=== PATIENT | male | born 1970 | race Two or more races ===

== ENCOUNTER 2017-10-22 18:41 | Emergency (ER) | payer OTHER ==
[~2017-10-22] VITALS: Ht 167.6 cm; Wt 95.3 kg
[2017-10-22] MEDS ORDERED: ALBUTEROL SULFATE 2.5 MG/3 ML NEBU. NEB ONE (19:30)
[2017-10-22] MEDS ORDERED: IV NORMAL SALINE 500ML BAG 500 ML IV ONE (19:30)
[2017-10-22 19:31] LABS: BASO % 1 % (0-3); EOS # 0.1 x10^3/uL (0.0-0.7); EOS % 1 % (0-3); HEMATOCRIT 40.4 % (39.0-53.0); HEMOGLOBIN 14.2 g/dL (13.0-17.5); LYMPH # 1.7 x10^3/uL (1.0-4.8); LYMPH % 17 % (24-48); MEAN CORPUSCULAR HEMOGLOBIN 31 pg (25-35); MEAN CORPUSCULAR HGB CONC 35 g/dL (31-37); MEAN CORPUSCULAR VOLUME 87 fL (79-100); MONO # 0.9 x10^3/uL (0.0-1.1); MONO % 9 % (0-9); NEUT # 7.1 x10^3uL (1.8-7.7); NEUT % 73 % (31-73); PLATELET COUNT 233 x10^3/uL (140-400); RED BLOOD COUNT 4.63 x10^6/uL (4.30-5.70); RED CELL DISTRIBUTION WIDTH 12.4 % (11.5-14.5); WHITE BLOOD COUNT 9.8 x10^3/uL (4.0-11.0)
[2017-10-22 19:44] LABS: CALCIUM 9.5 mg/dL (8.5-10.1); GFR 80.4
--- NOTE | 2017-10-22 19:48 | RAD ---
EXAM: Chest, 2 views. HISTORY: Chest pain. COMPARISON: None. FINDINGS: 2 views of the chest are obtained. There is no infiltrate, pleural effusion or pneumothorax. The heart is normal in size. IMPRESSION: No acute pulmonary finding. Electronically signed by: Jenna Johnson MD (10/22/2017 7:45 PM) [facility]
[2017-10-22 19:49] LABS: ALBUMIN 3.5 g/dL (3.4-5.0); ALBUMIN/GLOBULIN RATIO 1.1 (1.0-1.7); TOTAL BILIRUBIN 0.5 mg/dL (0.2-1.0); TOTAL PROTEIN 6.7 g/dL (6.4-8.2)
[2017-10-22] MEDS ORDERED: DEXAMETHASONE SOD PHOS 20 MG/5 ML VIAL. IV ONE (21:15)
[2017-10-22] MEDS ORDERED: BENZ100C PO (21:51)
[2017-10-22] MEDS ORDERED: AMOX1TAB61 PO (21:51)
[2017-10-22] MEDS ORDERED: PROAIR HFA8.5 GM INH (21:51)
--- NOTE | 2017-10-22 21:52 | PHYS DOC ---
Past Medical History Past Medical History: Diabetes-Type I, Renal Failure Past Surgical History: Other Additional Past Surgical Histo: KNEE SX, SKIN GRAPH Alcohol Use: Occasionally Drug Use: None Adult General Chief Complaint Chief Complaint: CHEST PAIN HPI HPI Patient is a 46 year old male who presents to the emergency Department today with complaints of having a cold for the last 3 weeks. For the last 3 days he states he has had chest pain that increases with deep breathing. Patient states that his cold symptoms have included a cough with green sputum produced, weakness, chills, nasal congestion, runny nose, nausea, and diaphoresis. Patient states this morning after coughing he vomited 1. He denies any shortness of breath or wheezing while he is at rest. He states he feels short of breath with increased activity. He denies any sinus pressure. Patient states he is a type II diabetic and he has history of chronic renal failure. Patient states that the only medications he takes are Januvia, NovoLog, Lantus, and aspirin. He states he has taken a total of 5 baby aspirin's today, the last aspirins were taken at approximately noon and he took 4 baby aspirins at that time. Currently he rates his pain as 8 out of 10 on the pain scale. Review of Systems Review of Systems Constitutional: Denies fever, reports chills and fatigue [] Eyes: Denies change in visual acuity, redness, or eye pain [] HENT: Denies ear pain or sore throat, reports nasal congestion and runny nose Respiratory: Reports productive cough with green sputum and shortness of breath that increases with activity. Cardiovascular: Reports substernal chest pain and tightness GI: Denies abdominal pain, bloody stools or diarrhea, reports 1 episode of nausea and vomiting this morning. Musculoskeletal: Denies back pain or joint pain [] Integument: Denies rash or skin lesions [] Neurologic: Denies headache, focal weakness or sensory changes [] Current Medications Current Medications Current Medications Medications (Trade) Dose Ordered Sig/Luis Fernando Start Time Stop Time Status Last Admin Dose Admin Albuterol Sulfate (Ventolin Neb Soln) 2.5 mg 1X ONCE 10/22/17 19:30 10/22/17 19:31 DC 10/22/17 20:08 2.5 MG Dexamethasone Sodium Phosphate (Decadron) 10 mg 1X ONCE 10/22/17 21:15 10/22/17 21:16 DC 10/22/17 21:05 10 MG Sodium Chloride 500 ml @ 500 mls/hr 1X ONCE 10/22/17 19:30 10/22/17 20:29 DC 10/22/17 19:30 500 MLS/HR Allergies Allergies Allergies Coded Allergies Type Severity Reaction Last Updated Verified No Known Drug Allergies 10/22/17 No Physical Exam Physical Exam Constitutional: Well developed, well nourished, no acute distress, non-toxic appearance. [] HENT: Normocephalic, atraumatic, bilateral external ears normal, oropharynx moist, large amount of pale yellow post nasal drainage, no sinus tenderness, no oral exudates, nose normal. [] Eyes: PERRLA, conjunctiva normal, no discharge. [] Neck: Normal range of motion, no tenderness, supple, no stridor. [] Cardiovascular:Heart rate regular rhythm, no murmur [] Lungs & Thorax: Bilateral breath sounds clear to auscultation in upper lobes, coarse lung sounds with scattered wheezes bilaterally in posterior guevara [] Abdomen: Bowel sounds normal, soft, no tenderness, no masses, no pulsatile masses. [] Skin: Warm, dry, no erythema, no rash. [] Extremities: No tenderness, no cyanosis, no clubbing, ROM intact, no edema. [] Neurologic: Alert and oriented X 3, normal motor function, normal sensory function, no focal deficits noted. [] Psychologic: Affect normal, judgement normal, mood normal. [] Current Patient Data Vital Signs Vital Signs Date Time Temp Pulse Resp B/P (MAP) Pulse Ox O2 Delivery O2 Flow Rate FiO2 10/22/17 22:02 70 18 122/88 (99) 99 10/22/17 20:11 Room Air 10/22/17 18:57 98.1 98.1 Lab Values Laboratory Tests Test 10/22/17 19:04 White Blood Count 9.8 x10^3/uL (4.0-11.0) Red Blood Count 4.63 x10^6/uL (4.30-5.70) Hemoglobin 14.2 g/dL (13.0-17.5) Hematocrit 40.4 % (39.0-53.0) Mean Corpuscular Volume 87 fL (79-100) Mean Corpuscular Hemoglobin 31 pg (25-35) Mean Corpuscular Hemoglobin Concent 35 g/dL (31-37) Red Cell Distribution Width 12.4 % (11.5-14.5) Platelet Count 233 x10^3/uL (140-400) Neutrophils (%) (Auto) 73 % (31-73) Lymphocytes (%) (Auto) 17 % (24-48) L Monocytes (%) (Auto) 9 % (0-9) Eosinophils (%) (Auto) 1 % (0-3) Basophils (%) (Auto) 1 % (0-3) Neutrophils # (Auto) 7.1 x10^3uL (1.8-7.7) Lymphocytes # (Auto) 1.7 x10^3/uL (1.0-4.8) Monocytes # (Auto) 0.9 x10^3/uL (0.0-1.1) Eosinophils # (Auto) 0.1 x10^3/uL (0.0-0.7) Basophils # (Auto) 0.0 x10^3/uL (0.0-0.2) D-Dimer (Adrienne) 0.33 ug/mlFEU (0.00-0.50) Sodium Level 136 mmol/L (136-145) Potassium Level 4.0 mmol/L (3.5-5.1) Chloride Level 100 mmol/L (98-107) Carbon Dioxide Level 27 mmol/L (21-32) Anion Gap 9 (6-14) Blood Urea Nitrogen 13 mg/dL (8-26) Creatinine 1.0 mg/dL (0.7-1.3) Estimated GFR (Cockcroft-Gault) 80.4 BUN/Creatinine Ratio 13 (6-20) Glucose Level 348 mg/dL (70-99) H Calcium Level 9.5 mg/dL (8.5-10.1) Total Bilirubin 0.5 mg/dL (0.2-1.0) Aspartate Amino Transferase (AST) 9 U/L (15-37) L Alanine Aminotransferase (ALT) 18 U/L (16-63) Alkaline Phosphatase 105 U/L (46-116) Troponin I Quantitative < 0.017 ng/mL (0.000-0.055) Total Protein 6.7 g/dL (6.4-8.2) Albumin 3.5 g/dL (3.4-5.0) Albumin/Globulin Ratio 1.1 (1.0-1.7) Laboratory Tests 10/22/17 19:04 Laboratory Tests 10/22/17 19:04 EKG EKG [] Radiology/Procedures Radiology/Procedures [] Course & Med Decision Making Course & Med Decision Making Pertinent Labs and Imaging studies reviewed. (See chart for details) [] Dragon Disclaimer Dragon Disclaimer This electronic medical record was generated, in whole or in part, using a voice recognition dictation system. Departure Departure Impression: Primary Impression: Bronchitis Additional Impression: Sinusitis Disposition: HOME, SELF-CARE Condition: STABLE Referrals: UNKNOWN PCP NAME (PCP) Patient Instructions: Bronchitis, [id number], Sinusitis, [id number] Additional Instructions: Fill prescription(s) and use as directed. Cool mist humidifier in room at bedtime. Tylenol or ibuprofen prn pain/fever. Increase clear fluids. Avoid triggers such as smoke, fragrance, dust, and pollen. Follow-up with your primary care doctor in 1-2 days, return to the ER if your symptoms worsen. Scripts Albuterol Sulfate (PROAIR HFA INHALER) 8.5 Gm Hfa.aer.ad 1-2 PUFF INH PRN Q6HRS PRN for SHORTNESS OF BREATH for 14 Days, #1 INHALER 0 Refills Prov: VERO LIZARRAGA APRN 10/22/17 Benzonatate (TESSALON PERLE) 100 Mg Capsule 1 CAP PO TID PRN for COUGH for 7 Days, #21 CAP 0 Refills Prov: VERO LIAZRRAGA APRN 10/22/17 Amoxicillin/Potassium Clav (AUGMENTIN 875-125 TABLET) 1 Each Tablet 1 TAB PO BID, #20 TAB 0 Refills Prov: VERO LIZARRAGA APRN 10/22/17 Problem Qualifiers Additional Impression: Sinusitis Sinusitis location: maxillary Chronicity: acute Recurrence: not specified as recurrent Qualified Codes: J01.00 - Acute maxillary sinusitis, unspecified VERO LIZARRAGA APRN Oct 22, 2017 21:51
[2017-10-22 22:02] VITALS: BP 122/88
--- NOTE | 2017-10-23 10:31 | EKG ---
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
== END 2017-10-22 22:03 | disposition home or self-care (01) ==
LOC: ER 18:41
DX: J40 Bronchitis, not specified as acute or chronic (principal); J01.00 Acute maxillary sinusitis, unspecified; E10.22 Type 1 diabetes mellitus with diabetic chronic kidney disease; R11.2 Nausea with vomiting, unspecified
CPT/HCPCS: 36415; 71046; 80053; 84484; 85025; 85379; 93005; 94640; 96361; 96374; 99285; J1100; J7040; J7613

== ENCOUNTER 2019-07-05 07:57 | Emergency (ER) | payer MEDICAID ==
[~2019-07-05] VITALS: Ht 167.6 cm; Wt 104.0 kg
[~2019-07-05 07:57] MED LIST: ALBU2.5V8 INH; AMOX1TAB61 PO; ASPI-612 PO; ATOR20TA58 PO; BENZ100C PO; INSU100V8 SQ; PANT40TA77 PO
[2019-07-05] MEDS ORDERED: IV NORMAL SALINE 1000ML BAG 1,000 ML IV ONE (08:30)
[2019-07-05 08:55] LABS: BARBITURATES NEG (NEG); BASO % 0 % (0-3); BENZODIAZEPINES NEG (NEG); CANNABINOIDS NEG (NEG); COCAINE NEG (NEG); EOS # 0.1 x10^3/uL (0.0-0.7); EOS % 2 % (0-3); HEMATOCRIT 42.7 % (39.0-53.0); HEMOGLOBIN 14.9 g/dL (13.0-17.5); LYMPH # 1.3 x10^3/uL (1.0-4.8); LYMPH % 22 % (24-48); MEAN CORPUSCULAR HEMOGLOBIN 30 pg (25-35); MEAN CORPUSCULAR HGB CONC 35 g/dL (31-37); MEAN CORPUSCULAR VOLUME 87 fL (79-100); METHADONE NEG (NEG); MONO # 0.3 x10^3/uL (0.0-1.1); MONO % 6 % (0-9); NEUT # 4.2 x10^3/uL (1.8-7.7); NEUT % 70 % (31-73); OPIATES NEG (NEG); PHENCYCLIDINE NEG (NEG); PLATELET COUNT 224 x10^3/uL (140-400); RED CELL DISTRIBUTION WIDTH 12.8 % (11.5-14.5)
[2019-07-05 08:57] LABS: CALCIUM 8.5 mg/dL (8.5-10.1); GFR 79.8; POTASSIUM 4.1 mmol/L (3.5-5.1)
[2019-07-05 09:04] LABS: AMPHETAMINE/METHAMPHETAMINE NEG (NEG)
--- NOTE | 2019-07-05 09:04 | RAD ---
PQRS Compliance Statement: One or more of the following individualized dose reduction techniques were utilized for this examination: 1. Automated exposure control 2. Adjustment of the mA and/or kV according to patient size 3. Use of iterative reconstruction technique CT abdomen/pelvis without contrast 07/05/2019 8:42 AM INDICATION: Hematuria, abdominal pain COMPARISON: CT abdomen/pelvis 04/25/2019 TECHNIQUE: Multiple axial CT images of the abdomen and pelvis were obtained without intravenous contrast. Coronal and sagittal reformats are provided. FINDINGS: Visualized portions of the lung bases are clear. Heart size is within normal limits. Evaluation of the solid abdominal viscera is limited by lack of intravenous contrast. No suspicious hepatic masses are identified. Spleen, bilateral adrenal glands, and pancreas are normal in appearance. Gallbladder is present without adjacent inflammatory changes. The abdominal aorta is normal in course and caliber. There are no pathologically enlarged lymph nodes in the abdomen and pelvis. There is no abdominal free fluid. There is no free intraperitoneal air. The kidneys are relatively symmetric in appearance. There is no suspicious renal mass within the limitations of a noncontrast examination. There is no hydronephrosis. There are no calculi within the kidneys, ureters or urinary bladder. Small and large bowel are normal in caliber. There is no evidence for bowel obstruction. There are no pericolonic inflammatory changes. A normal, nondilated appendix is visualized without adjacent inflammatory changes. Urinary bladder is within normal limits given degree of distention. Prostate and seminal vesicles are normal. There is a healed fracture involving the medial left 12th rib at the costotransverse junction. 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 IMPRESSION: No evidence for obstructive uropathy. No calculi are identified in the kidneys, ureters or urinary bladder. Electronically signed by: Beata Guerin MD (07/05/2019 9:01 AM) [facility]
[2019-07-05 09:10] LABS: ALBUMIN 3.6 g/dL (3.4-5.0); ALBUMIN/GLOBULIN RATIO 1.2 (1.0-1.7); MAGNESIUM 1.8 mg/dL (1.8-2.4); TOTAL BILIRUBIN 0.6 mg/dL (0.2-1.0); TOTAL PROTEIN 6.6 g/dL (6.4-8.2)
[2019-07-05 09:18] LABS: CLARITY,URINE BLOODY; COLOR,URINE RED; RBC,URINE TNTC /HPF (0-2)
[2019-07-05 09:19] LABS: BACTERIA,URINE FEW /HPF (0-FEW); WBC,URINE OCC /HPF (0-4)
[2019-07-05 09:45] VITALS: BP 132/74
[2019-07-05] MEDS ORDERED: cefTRIAXone IV Push 1 GM VIAL. IVP ONE (09:45)
[2019-07-05] MEDS ORDERED: LABETALOL 20 MG/4 ML DISP.SYRIN. IVP ONE (10:00)
--- NOTE | 2019-07-05 12:55 | PHYS DOC ---
Past Medical History Past Medical History: Diabetes-Type II, Renal Failure Past Surgical History: Other Additional Past Surgical Histo: knee surgery Smoking Status: Current Every Day Smoker Alcohol Use: Rarely Drug Use: None Adult General Chief Complaint Chief Complaint: MULTIPLE COMPLAINTS HPI HPI Patient is a 48 year old male with history of insulin-dependent diabetes, CAD and medical noncompliance presents with gross hematuria with clots first noticed 1 hour prior to ED arrival. Patient reports minimal left flank pain. Denies abdominal pain, fever chills, sweats, no dysuria. No history of kidney stones. Patient is not currently on anticoagulation therapy. No other acute symptoms or complaints. Of note, patient blood sugars greater than 400. He does not take insulin or any medications and ate donuts prior to coming to the emergency department. [] Review of Systems Review of Systems ROS as per HPI All other systems were reviewed and found to be within normal limits, except as documented in this note. Current Medications Current Medications Current Medications Medications (Trade) Dose Ordered Sig/Luis Fernando Start Time Stop Time Status Last Admin Dose Admin Ceftriaxone Sodium (Rocephin) 1 gm 1X ONCE 07/05/19 09:45 07/05/19 09:46 DC 07/05/19 10:05 1 GM Labetalol HCl (Normodyne Iv Push) 20 mg 1X ONCE 07/05/19 10:00 07/05/19 10:01 UNV Sodium Chloride 1,000 ml @ 1,000 mls/hr 1X ONCE 07/05/19 08:30 07/05/19 09:29 DC 07/05/19 08:32 1,000 MLS/HR Allergies Allergies Allergies Coded Allergies Type Severity Reaction Last Updated Verified No Known Drug Allergies 10/22/17 No Physical Exam Physical Exam Constitutional: Well developed, well nourished, no acute distress, non-toxic appearance. [] HENT: Normocephalic, atraumatic, bilateral external ears normal, oropharynx moist, nose normal. [] Eyes: PERRLA, EOMI, conjunctiva normal. [] Neck: Normal range of motion, no tenderness. [] Cardiovascular:Heart rate regular rhythm, no murmur [] Lungs & Thorax: Bilateral breath sounds clear to auscultation [] Abdomen: Bowel sounds normal, soft, no tenderness. [] Skin: Warm, dry, no erythema. [] Back: No tenderness. [] Extremities: No tenderness,, no edema. [] Neurologic: Alert and oriented X 3, normal motor function, normal sensory function, no focal deficits noted. [] Psychologic: Affect normal, judgement normal, mood normal. [] Current Patient Data Vital Signs Vital Signs Date Time Temp Pulse Resp B/P (MAP) Pulse Ox O2 Delivery O2 Flow Rate FiO2 07/05/19 09:45 75 132/74 (93) 98 Room Air 07/05/19 08:06 98.4 12 98.4 Lab Values Laboratory Tests Test 07/05/19 08:12 07/05/19 08:18 White Blood Count 6.0 x10^3/uL (4.0-11.0) Red Blood Count 4.90 x10^6/uL (4.30-5.70) Hemoglobin 14.9 g/dL (13.0-17.5) Hematocrit 42.7 % (39.0-53.0) Mean Corpuscular Volume 87 fL (79-100) Mean Corpuscular Hemoglobin 30 pg (25-35) Mean Corpuscular Hemoglobin Concent 35 g/dL (31-37) Red Cell Distribution Width 12.8 % (11.5-14.5) Platelet Count 224 x10^3/uL (140-400) Neutrophils (%) (Auto) 70 % (31-73) Lymphocytes (%) (Auto) 22 % (24-48) L Monocytes (%) (Auto) 6 % (0-9) Eosinophils (%) (Auto) 2 % (0-3) Basophils (%) (Auto) 0 % (0-3) Neutrophils # (Auto) 4.2 x10^3/uL (1.8-7.7) Lymphocytes # (Auto) 1.3 x10^3/uL (1.0-4.8) Monocytes # (Auto) 0.3 x10^3/uL (0.0-1.1) Eosinophils # (Auto) 0.1 x10^3/uL (0.0-0.7) Basophils # (Auto) 0.0 x10^3/uL (0.0-0.2) Prothrombin Time 12.0 SEC (11.7-14.0) Prothrombin Time INR 0.9 (0.8-1.1) Activated Partial Thromboplast Time 24 SEC (24-38) Urine Collection Type Unknown Urine Color Red Urine Clarity Bloody Urine pH (<5.0-8.0) Urine Specific [place] (1.000-1.030) Urine Protein mg/dL (NEG-TRACE) Urine Glucose (UA) mg/dL (NEG) Urine Ketones (Stick) mg/dL (NEG) Urine Blood (NEG) Urine Nitrite (NEG) Urine Bilirubin (NEG) Urine Urobilinogen Dipstick mg/dL (0.2 mg/dL) Urine Leukocyte Esterase (NEG) Urine RBC Tntc /HPF (0-2) Urine WBC Occ /HPF (0-4) Urine Bacteria Few /HPF (0-FEW) Sodium Level 133 mmol/L (136-145) L Potassium Level 4.1 mmol/L (3.5-5.1) Chloride Level 99 mmol/L (98-107) Carbon Dioxide Level 25 mmol/L (21-32) Anion Gap 9 (6-14) Blood Urea Nitrogen 19 mg/dL (8-26) Creatinine 1.0 mg/dL (0.7-1.3) Estimated GFR (Cockcroft-Gault) 79.8 BUN/Creatinine Ratio 19 (6-20) Glucose Level 467 mg/dL (70-99) H Lactic Acid Level 0.6 mmol/L (0.4-2.0) Calcium Level 8.5 mg/dL (8.5-10.1) Magnesium Level 1.8 mg/dL (1.8-2.4) Total Bilirubin 0.6 mg/dL (0.2-1.0) Aspartate Amino Transferase (AST) 13 U/L (15-37) L Alanine Aminotransferase (ALT) 28 U/L (16-63) Alkaline Phosphatase 129 U/L (46-116) H Total Protein 6.6 g/dL (6.4-8.2) Albumin 3.6 g/dL (3.4-5.0) Albumin/Globulin Ratio 1.2 (1.0-1.7) Lipase 3654 U/L (73-393) H Urine Opiates Screen Neg (NEG) Urine Methadone Screen Neg (NEG) Urine Barbiturates Neg (NEG) Urine Phencyclidine Screen Neg (NEG) Urine Amphetamine/Methamphetamine Neg (NEG) Urine Benzodiazepines Screen Neg (NEG) Urine Cocaine Screen Neg (NEG) Urine Cannabinoids Screen Neg (NEG) Ethyl Alcohol Level < 10 mg/dL (0-10) Urine Ethyl Alcohol Neg (NEG) Glucose (Fingerstick) 448 mg/dL (70-99) H Laboratory Tests 07/05/19 08:12 Laboratory Tests 07/05/19 08:12 EKG EKG [] Radiology/Procedures Radiology/Procedures [CT abd/pelvis: NAD per radiology report.] Course & Med Decision Making Course & Med Decision Making Pertinent Labs and Imaging studies reviewed. (See chart for details) [Patient with hematuria with out evidence of kidney stone on CT. Patient is able to pass urine in the emergency department. Catheter placement for continuous bladder bladder irrigation offered and declined by patient. He prefers outpatient follow-up with his PCP for urology referral. Return precautions reviewed. Patient verbalizes understanding agreement discharge instructions prior to departure.] Dragon Disclaimer Dragon Disclaimer This electronic medical record was generated, in whole or in part, using a voice recognition dictation system. Departure Departure Impression: Primary Impression: Hematuria Disposition: 01 HOME, SELF-CARE Condition: STABLE Patient Instructions: Hematuria-Brief Additional Instructions: Please increase fluids and follow up with your PCP for a urology referral in the next 2 weeks. In the meantime, if you develop difficulty urinating return to the closest ED with a urologist on staff. CATY PARRA DO July 05, 2019 12:55
--- NOTE | 2019-07-05 14:30 | EKG ---
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
== END 2019-07-05 10:30 | disposition home or self-care (01) ==
LOC: ER 07:57
DX: R31.0 Gross hematuria (principal); E11.22 Type 2 diabetes mellitus with diabetic chronic kidney disease; N18.9 Chronic kidney disease, unspecified; F17.200 Nicotine dependence, unspecified, uncomplicated; I25.10 Atherosclerotic heart disease of native coronary artery without angina pectoris; Z79.4 Long term (current) use of insulin
CPT/HCPCS: 36415; 74176; 80053; 80307; 81001; 82962; 83605; 83690; 83735; 85025; 85610; 85730; 93005; 96374; 99285; G0480; J0696; J7030

== ENCOUNTER 2020-03-02 21:36 | Inpatient (IN) | payer OTHER, MEDICAID ==
[~2020-03-02] VITALS: Ht 167.6 cm; Wt 82.0 kg
[~2020-03-02 21:36] MED LIST changes: -ASPI-612 PO; +ASPI-886 PO
[2020-03-02 22:36] LABS: BASO % 1 % (0-3); EOS # 0.1 x10^3/uL (0.0-0.7); EOS % 2 % (0-3); HEMATOCRIT 42.4 % (39.0-53.0); HEMOGLOBIN 14.8 g/dL (13.0-17.5); LYMPH # 1.6 x10^3/uL (1.0-4.8); LYMPH % 26 % (24-48); MEAN CORPUSCULAR HEMOGLOBIN 31 pg (25-35); MEAN CORPUSCULAR HGB CONC 35 g/dL (31-37); MEAN CORPUSCULAR VOLUME 88 fL (79-100); MONO # 0.5 x10^3/uL (0.0-1.1); MONO % 9 % (0-9); NEUT # 3.9 x10^3/uL (1.8-7.7); NEUT % 62 % (31-73); PLATELET COUNT 194 x10^3/uL (140-400); RED BLOOD COUNT 4.84 x10^6/uL (4.30-5.70); RED CELL DISTRIBUTION WIDTH 12.5 % (11.5-14.5); WHITE BLOOD COUNT 6.2 x10^3/uL (4.0-11.0)
[2020-03-02 22:38] LABS: BILIRUBIN,URINE NEGATIVE (NEG); CLARITY,URINE CLEAR; COLOR,URINE YELLOW; NITRITE,URINE NEGATIVE (NEG); PH,URINE 6.5 (<5.0-8.0); PROTEIN,URINE 30 mg/dL (NEG-TRACE)
[2020-03-02 22:42] LABS: ALBUMIN 3.9 g/dL (3.4-5.0); ALBUMIN/GLOBULIN RATIO 1.3 (1.0-1.7); CALCIUM 9.1 mg/dL (8.5-10.1); CREATININE 1.3 mg/dL (0.7-1.3); GFR 58.7; POTASSIUM 4.1 mmol/L (3.5-5.1); TOTAL BILIRUBIN 0.8 mg/dL (0.2-1.0); TOTAL PROTEIN 6.9 g/dL (6.4-8.2)
[2020-03-02 22:45] LABS: BACTERIA,URINE 0 /HPF (0-FEW); RBC,URINE 0 /HPF (0-2); WBC,URINE 0 /HPF (0-4)
[2020-03-02 22:57] LABS: MAGNESIUM 2.2 mg/dL (1.8-2.4)
[2020-03-02] MEDS ORDERED: INSULIN REGULAR 100 UNIT/ML 3ML VIAL. IV ONE (23:00)
[2020-03-02] MEDS ORDERED: IV NORMAL SALINE 1000ML BAG 1,000 ML IV ONE ×2 (23:00)
[2020-03-02 23:11] LABS: CREATINE KINASE 50 U/L (39-308)
--- NOTE | 2020-03-02 23:11 | RAD ---
INDICATION: Reason: chest pain / Spl. Instructions: / History: COMPARISON: March 2019. FINDINGS: Single view of chest obtained. No focal airspace consolidation. Cardiomediastinal contour unremarkable. No acute osseous abnormality. IMPRESSION: * No focal airspace consolidation or edema. Electronically signed by: Steve Huang MD (03/02/2020 11:08 PM) [id number]
--- NOTE | 2020-03-03 01:04 | ED.ADGEN ---
Past Medical History Past Medical History: Diabetes-Type II, Renal Failure Past Surgical History: Other Additional Past Surgical Histo: knee surgery Smoking Status: Current Every Day Smoker Alcohol Use: None Drug Use: None General Adult EDM: Chief Complaint: CHEST PAIN HPI: HPI: Patient is a 49 year old male with history of diabetes and chronic renal failure who presents to the emergency room with complaints of a sudden onset of chest pain that began 1 hour ago. 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 At the onset of the discomfort he became sweaty and vomited once but denies any blood in his vomit. Patient reports that he has felt fatigued and had a headache recently but he denies any body aches, fever, or loss of taste/smell. Patient reports that he has had a recent cough that occasionally produces green or brown sputum. He states that he has noticed that he has felt short of breath this evening that his chest feels tight. He denies any abdominal pain, diarrhea, or known exposure to COVID-19. Patient reports he does smoke occasionally, he denies any illicit drug use or alcohol use. He states he has a strong family history of heart disease both of his parents had heart problems. He currently rates the discomfort 8 out of 10 on the pain scale, he denies any alleviating or exacerbating factors and describes the discomfort as a heaviness or pressure in his chest. Review of Systems: Review of Systems: Complete ROS is negative unless otherwise noted in HPI. Current Medications: Current Medications Medications (Trade) Dose Ordered Sig/Luis Fernando Start Time Stop Time Status Last Admin Dose Admin Insulin Human Regular (HumuLIN R VIAL) 5 unit 1X ONCE 03/02/20 23:00 03/02/20 23:01 DC 03/02/20 23:25 5 UNIT Sodium Chloride 1,000 ml @ 1,000 mls/hr 1X ONCE 03/02/20 23:00 03/02/20 23:59 DC 03/02/20 23:18 1,000 MLS/HR Allergies: Allergies: Allergies Coded Allergies Type Severity Reaction Last Updated Verified No Known Drug Allergies 10/22/17 No Physical Exam: PE: See Above Constitutional: Well developed, well nourished, no acute distress, non-toxic appearance. [] HENT: Normocephalic, atraumatic, bilateral external ears normal, nose normal. [] Eyes: PERRLA, EOMI, conjunctiva injected, no discharge. [] Neck: Normal range of motion, no stridor. [] Cardiovascular:Heart rate regular rhythm Lungs & Thorax: Respirations even and unlabored, no retractions, no respiratory distress Abdomen: soft, no tenderness Skin: Warm, dry, no erythema, no rash. [] Extremities: No cyanosis, ROM intact, no edema. [] Neurologic: Alert and oriented X 3, no focal deficits noted. [] Psychologic: Affect normal, judgement normal, mood normal. [] Current Patient Data: Labs: Laboratory Tests Test 03/02/20 21:40 03/02/20 22:03 White Blood Count 6.2 x10^3/uL (4.0-11.0) Red Blood Count 4.84 x10^6/uL (4.30-5.70) Hemoglobin 14.8 g/dL (13.0-17.5) Hematocrit 42.4 % (39.0-53.0) Mean Corpuscular Volume 88 fL (79-100) Mean Corpuscular Hemoglobin 31 pg (25-35) Mean Corpuscular Hemoglobin Concent 35 g/dL (31-37) Red Cell Distribution Width 12.5 % (11.5-14.5) Platelet Count 194 x10^3/uL (140-400) Neutrophils (%) (Auto) 62 % (31-73) Lymphocytes (%) (Auto) 26 % (24-48) Monocytes (%) (Auto) 9 % (0-9) Eosinophils (%) (Auto) 2 % (0-3) Basophils (%) (Auto) 1 % (0-3) Neutrophils # (Auto) 3.9 x10^3/uL (1.8-7.7) Lymphocytes # (Auto) 1.6 x10^3/uL (1.0-4.8) Monocytes # (Auto) 0.5 x10^3/uL (0.0-1.1) Eosinophils # (Auto) 0.1 x10^3/uL (0.0-0.7) Basophils # (Auto) 0.0 x10^3/uL (0.0-0.2) D-Dimer (Adrienne) 0.42 ug/mlFEU (0.00-0.50) Sodium Level 131 mmol/L (136-145) L Potassium Level 4.1 mmol/L (3.5-5.1) Chloride Level 95 mmol/L (98-107) L Carbon Dioxide Level 25 mmol/L (21-32) Anion Gap 11 (6-14) Blood Urea Nitrogen 17 mg/dL (8-26) Creatinine 1.3 mg/dL (0.7-1.3) Estimated GFR (Cockcroft-Gault) 58.7 BUN/Creatinine Ratio 13 (6-20) Glucose Level 508 mg/dL (70-99) *H Calcium Level 9.1 mg/dL (8.5-10.1) Magnesium Level 2.2 mg/dL (1.8-2.4) Total Bilirubin 0.8 mg/dL (0.2-1.0) Aspartate Amino Transferase (AST) 12 U/L (15-37) L Alanine Aminotransferase (ALT) 27 U/L (16-63) Alkaline Phosphatase 104 U/L (46-116) Creatine Kinase 50 U/L (39-308) Creatine Kinase MB (Mass) 0.9 ng/mL (0.0-3.6) Creatine Kinase MB Relative Index % (0-4) Troponin I Quantitative < 0.017 ng/mL (0.000-0.055) FF-Xhx-B-Type Natriuretic Peptide 14 pg/mL (0-124) Total Protein 6.9 g/dL (6.4-8.2) Albumin 3.9 g/dL (3.4-5.0) Albumin/Globulin Ratio 1.3 (1.0-1.7) Lipase 1594 U/L (73-393) H Urine Collection Type Unknown Urine Color Yellow Urine Clarity Clear Urine pH 6.5 (<5.0-8.0) Urine Specific [place] >=1.030 (1.000-1.030) Urine Protein 30 mg/dL (NEG-TRACE) Urine Glucose (UA) >=1000 mg/dL (NEG) Urine Ketones (Stick) Negative mg/dL (NEG) Urine Blood Negative (NEG) Urine Nitrite Negative (NEG) Urine Bilirubin Negative (NEG) Urine Urobilinogen Dipstick 1.0 mg/dL (0.2 mg/dL) Urine Leukocyte Esterase Negative (NEG) Urine RBC 0 /HPF (0-2) Urine WBC 0 /HPF (0-4) Urine Bacteria 0 /HPF (0-FEW) Laboratory Tests 03/02/20 21:40 Laboratory Tests 03/02/20 21:40 Vital Signs: Vital Signs Date Time Temp Pulse Resp B/P (MAP) Pulse Ox O2 Delivery O2 Flow Rate FiO2 03/02/20 21:38 98.0 105 24 132/74 (93) 97 Room Air 98.0 EKG: EK-sinus tachycardia, rate 111, leftward axis, no STEMI, read by Dr. Hodges Heart Score: HEART Score for Chest Pain: HEART Score for Chest Pain Response (Comments) Value History Moderately Suspicious 1 ECG Nonspecific Repolarizatio 1 Age >45 - < 65 1 Risk Factors >3 Risk Factors or Hx CAD 2 Troponin < Normal Limit 0 Total 5 Risk Factors: Risk Factors: DM, Current or recent (<one month) smoker, HTN, HLP, family history of CAD, obesity. Risk Scores: Score 0 - 3: 2.5% MACE over next 6 weeks - Discharge Home Score 4 - 6: 20.3% MACE over next 6 weeks - Admit for Clinical Observation Score 7 - 10: 72.7% MACE over next 6 weeks - Early Invasive Strategies Radiology/Procedures: Radiology/Procedures: PROCEDURE: CHEST AP ONLY INDICATION: Reason: chest pain / Spl. Instructions: / History: COMPARISON: March 2019. FINDINGS: Single view of chest obtained. No focal airspace consolidation. Cardiomediastinal contour unremarkable. No acute osseous abnormality. IMPRESSION: * No focal airspace consolidation or edema. Electronically signed by: Steve Huang MD (03/02/2020 11:08 PM) DESKTOP- [id number][] Course & Med Decision Making: Course & Med Decision Making Pertinent Labs and Imaging studies reviewed. (See chart for details) [id number] will admit the patient to the hospitalist for chest pain and hyperglycemia. Serial troponins and EKGs ordered, chest pain admission order set initiated. [] Leola Disclaimer: Leola Disclaimer: This electronic medical record was generated, in whole or in part, using a voice recognition dictation system. Departure Departure Impression: Primary Impression: Chest pain Additional Impressions: Hyperglycemia Person under investigation for COVID-19 Disposition: ADMITTED INPT THIS HOSP Admitting Physician: GADIEL Paris) Condition: STABLE Referrals: UNKNOWN PCP NAME (PCP) Problem Qualifiers Primary Impression: Chest pain Chest pain type: unspecified Qualified Codes: R07.9 - Chest pain, unspeci VERO Cha CERTIFIED ART THERAPIST Mar 03, 2020 01:04
[2020-03-03 06:35] LABS: CHOLESTEROL/HDL RATIO 7.7
--- NOTE | 2020-03-03 07:38 | PDOC1 ---
History and Physical Date of Admission Date of Admission DATE: 03/03/20 TIME: 07:36 Identification/Chief Complaint Chief Complaint Chest pain Source Source: Patient History of Present Illness History of Present Illness Mr George is a 49 year old male with history of diabetes and chronic renal failure, smoker who presents to the emergency room with complaints of a sudden onset of chest pain that began 1 hour prior to presentatino. 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 At the onset of the discomfort he became diaphoretic and vomited once but denies any blood in his vomit. Patient reports that he has felt fatigued and had a headache recently but he denies any body aches, fever, or loss of taste/smell. Patient reports that he has had a recent cough that occasionally produces green or brown sputum. He states that he has noticed that he has felt short of breath this evening that his chest feels tight. He denies any abdominal pain, diarrhea, or known exposure to COVID-19. Patient reports he does smoke occasionally, he denies any illicit drug use or alcohol use. He states he has a strong family history of heart disease both of his parents had heart problems. He currently rates the discomfort 8 out of 10 on the pain scale, he denies any alleviating or exacerbating factors and describes the discomfort as a heaviness or pressure in his chest. On further review he notes his urine has been intermittently looking red recently, no pain on urination. EKG sinus tachycardia rate of [address] segment or T wave changes leftward axis. Chest radiograph with no acute abnormalities Labs with WBC 6.2, Hb 14.8, platelets 194, D-dimer and troponin negative, NA 131, K4.1, BUN 17, CR 1.3, glucose 508, lipase 1594 Admitted for further care. Past Medical History Pulmonary: No pertinent hx GI: No pertinent hx Heme/Onc: No pertinent hx Hepatobiliary: No pertinent hx Psych: No pertinent hx Musculoskeletal: Osteoarthritis Rheumatologic: No pertinent hx Infectious disease: No pertinent hx Renal/: Chronic renal insuff Endocrine: Diabetes Past Surgical History Past Surgical History: Arthroscopy, Other Family History Family History: High Cholestrol, Hypertension Social History Smoke: 1 pack per day ALCOHOL: none Drugs: None Current Problem List Problem List Problems Medical Problems: (1) Chest pain Status: Acute (2) Hyperglycemia Status: Acute (3) Person under investigation for COVID-19 Status: Acute Current Medications Current Medications Current Medications Insulin Human Regular (HumuLIN R VIAL) 5 unit 1X ONCE IV Last administered on 03/02/20at 23:25; Start 03/02/20 at 23:00; Stop 03/02/20 at 23:01; Status DC Sodium Chloride 1,000 ml @ 1,000 mls/hr 1X ONCE IV Last administered on 03/02/20at 23:18; Start 03/02/20 at 23:00; Stop 03/02/20 at 23:59; Status DC Sodium Chloride 1,000 ml @ 1,000 mls/hr 1X ONCE IV Last administered on 03/02/20at 23:18; Start 03/02/20 at 23:00; Stop 03/02/20 at 23:59; Status DC Active Scripts Active Lantus (Insulin Glargine,Hum.rec.anlog) 100 Unit/1 Ml Vial 20 Unit SQ QHS 30 Days Pantoprazole Sodium (Pantoprazole Sodium) 40 Mg Tablet. 40 Mg PO DAILYAC 30 Days Aspirin Ec (Aspirin) 81 Mg Tablet. 81 Mg PO DAILYWBKFT 30 Days Atorvastatin Calcium 20 Mg Tablet 20 Mg PO QHS 30 Days Proair Hfa Inhaler (Albuterol Sulfate) 8.5 Gm Hfa.aer.ad 1-2 Puff INH PRN Q6HRS PRN 14 Days Tessalon Perle (Benzonatate) 100 Mg Capsule 1 Cap PO TID PRN 7 Days Allergies Allergies: Coded Allergies: No Known Drug Allergies (Unverified , 10/22/17) ROS General: YES: Fatigue, Malaise; No: Chills, Night Sweats, Appetite, Other PSYCHOLOGICAL ROS: No: Anxiety, Behavioral Disorder, Concentration difficultie, Decreased libido, Depression, Disorientation, Hallucinations, Hostility, Irritablity, Memory difficulties, Mood Swings, Obsessive thoughts, Physical abuse, Sexual abuse, Sleep disturbances, Suicidal ideation, Other Eyes: No Blurry vision, No Decreased vision, No Double vision, No Dry eyes, No Excessive tearing, No Eye Pain, No Itchy Eyes, No Loss of vision, No Photophobia, No Scotomata, No Uses contacts, No Uses glasses, No Other HEENT: No: Heacaches, Visual Changes, Hearing change, Nasal congestion, Nasal discharge, Oral lesions, Sinus pain, Sore Throat, Epistaxis, Sneezing, Snoring, Tinnitus, Vertigo, Vocal changes, Other ALLERGY AND IMMUNOLOGY: No: Hives, Insect Bite Sensitivity, Itchy/Watery Eyes, Nasal Congestion, Post Nasal Drip, Seasonal Allergies, Other Hematological and Lymphatic: No: Bleeding Problems, Blood Clots, Blood Transfusions, Brusing, Night Sweats, Pallor, Swollen Lymph Nodes, Other ENDOCRINE: No: Breast Changes, Galactorrhea, Hair Pattern Changes, Hot Flashes, Malaise/lethargy, Mood Swings, Palpitations, Polydipsia/polyuria, Skin Changes, Temperature Intolerance, Unexpected Weight Changes, Other Breast: No New/Changing Breast Lumps, No Nipple changes, No Nipple discharge, No Other Respiratory: No: Cough, Hemoptysis, Orthopnea, Pleuritic Pain, Shortness of breath, SOB with excertion, Sputum Changes, Stridor, Tachypnea, Wheezing, Other Cardiovascular: yes Chest Pain; No Palpitations, No Orthopnea, No Paroxysmal Noc. Dyspnea, No Edema, No Lt Headedness, No Other Gastrointestinal: Yes Nausea, Yes Vomiting, Yes Abdominal Pain; No Diarrhea, No Constipation, No Melena, No Hematochezia, No Other Genitourinary: No Dysuria, No Frequency, No Incontinence, No Hematuria, No Retention, No Discharge, No Urgency, No Pain, No Flank Pain, No Other, No , No , No , No , No , No , No Musculoskeletal: No Gait Disturbance, No Joint Pain, No Joint Stiffness, No Joint Swelling, No Muscle Pain, No Muscular Weakness, No Pain In:, No Swelling In:, No Other Neurological: No Behavorial Changes, No Bowel/Bladder ControlChng, No Confusion, No Dizziness, No Gait Disturbance, No Headaches, No Impaired Coord/balance, No Memory Loss, No Numbness/Tingling, No Seizures, No Speech Problems, No Tremors, No Visual Changes, No Weakness, No Other Skin: No Dry Skin, No Eczema, No Hair Changes, No Lumps, No Mole Changes, No Mottling, No Nail Changes, No Pruritus, No Rash, No Skin Lesion Changes, No Other, No Acne Physical Exam General: Alert, Oriented X3, Cooperative, moderate distress HEENT: Atraumatic, PERRLA, EOMI, Mucous membr. moist/pink Lungs: Clear to auscultation, Normal air movement Heart: S1S2, RRR, no thrills, no rubs, no gallops, no murmurs Abdomen: Normal bowel sounds, Soft, No hepatosplenomegaly, No masses, Other (epigastric and LUQ tenderness) Rectal Exam: not examined Extremities: No clubbing, No cyanosis, No edema, Normal pulses, No tenderness/swelling Skin: No rashes, No breakdown, No significant lesion Neuro: Normal gait, Normal speech, Strength at 5/5 X4 ext, Normal tone, Sensation intact, Cranial nerves 3-12 NL, Reflexes 2+ Psych/Mental Status: Mental status NL, Mood NL Vitals Vitals Vital Signs Date Time Temp Pulse Resp B/P (MAP) Pulse Ox O2 Delivery O2 Flow Rate FiO2 03/03/20 06:33 94 102/65 (77) 98 Room Air 03/03/20 01:30 98.0 17 98.0 Labs Labs Laboratory Tests Test 03/02/20 21:40 03/02/20 22:03 03/03/20 01:02 03/03/20 06:10 White Blood Count 6.2 x10^3/uL (4.0-11.0) Red Blood Count 4.84 x10^6/uL (4.30-5.70) Hemoglobin 14.8 g/dL (13.0-17.5) Hematocrit 42.4 % (39.0-53.0) Mean Corpuscular Volume 88 fL (79-100) Mean Corpuscular Hemoglobin 31 pg (25-35) Mean Corpuscular Hemoglobin Concent 35 g/dL (31-37) Red Cell Distribution Width 12.5 % (11.5-14.5) Platelet Count 194 x10^3/uL (140-400) Neutrophils (%) (Auto) 62 % (31-73) Lymphocytes (%) (Auto) 26 % (24-48) Monocytes (%) (Auto) 9 % (0-9) Eosinophils (%) (Auto) 2 % (0-3) Basophils (%) (Auto) 1 % (0-3) Neutrophils # (Auto) 3.9 x10^3/uL (1.8-7.7) Lymphocytes # (Auto) 1.6 x10^3/uL (1.0-4.8) Monocytes # (Auto) 0.5 x10^3/uL (0.0-1.1) Eosinophils # (Auto) 0.1 x10^3/uL (0.0-0.7) Basophils # (Auto) 0.0 x10^3/uL (0.0-0.2) D-Dimer (Adrienne) 0.42 ug/mlFEU (0.00-0.50) Sodium Level 131 mmol/L (136-145) Potassium Level 4.1 mmol/L (3.5-5.1) Chloride Level 95 mmol/L (98-107) Carbon Dioxide Level 25 mmol/L (21-32) Anion Gap 11 (6-14) Blood Urea Nitrogen 17 mg/dL (8-26) Creatinine 1.3 mg/dL (0.7-1.3) Estimated GFR (Cockcroft-Gault) 58.7 BUN/Creatinine Ratio 13 (6-20) Glucose Level 508 mg/dL (70-99) Calcium Level 9.1 mg/dL (8.5-10.1) Magnesium Level 2.2 mg/dL (1.8-2.4) Total Bilirubin 0.8 mg/dL (0.2-1.0) Aspartate Amino Transf (AST/SGOT) 12 U/L (15-37) Alanine Aminotransferase (ALT/SGPT) 27 U/L (16-63) Alkaline Phosphatase 104 U/L (46-116) Creatine Kinase 50 U/L (39-308) Creatine Kinase MB (Mass) 0.9 ng/mL (0.0-3.6) Creatine Kinase MB Relative Index % (0-4) Troponin I Quantitative < 0.017 ng/mL (0.000-0.055) < 0.017 ng/mL (0.000-0.055) < 0.017 ng/mL (0.000-0.055) AY-Nbj-P-Type Natriuretic Peptide 14 pg/mL (0-124) Total Protein 6.9 g/dL (6.4-8.2) Albumin 3.9 g/dL (3.4-5.0) Albumin/Globulin Ratio 1.3 (1.0-1.7) Lipase 1594 U/L (73-393) Urine Collection Type Unknown Urine Color Yellow Urine Clarity Clear Urine pH 6.5 (<5.0-8.0) Urine Specific [place] >=1.030 (1.000-1.030) Urine Protein 30 mg/dL (NEG-TRACE) Urine Glucose (UA) >=1000 mg/dL (NEG) Urine Ketones (Stick) Negative mg/dL (NEG) Urine Blood Negative (NEG) Urine Nitrite Negative (NEG) Urine Bilirubin Negative (NEG) Urine Urobilinogen Dipstick 1.0 mg/dL (0.2 mg/dL) Urine Leukocyte Esterase Negative (NEG) Urine RBC 0 /HPF (0-2) Urine WBC 0 /HPF (0-4) Urine Bacteria 0 /HPF (0-FEW) Triglycerides Level 289 mg/dL (0-150) Cholesterol Level 192 mg/dL (0-200) LDL Cholesterol, Calculated 109 mg/dL (0-100) VLDL Cholesterol, Calculated 58 mg/dL (0-40) Non-HDL Cholesterol Calculated 167 mg/dL (0-129) HDL Cholesterol 25 mg/dL (40-60) Cholesterol/HDL Ratio 7.7 Laboratory Tests Test 03/02/20 21:40 03/02/20 22:03 03/03/20 01:02 03/03/20 06:10 White Blood Count 6.2 x10^3/uL (4.0-11.0) Red Blood Count 4.84 x10^6/uL (4.30-5.70) Hemoglobin 14.8 g/dL (13.0-17.5) Hematocrit 42.4 % (39.0-53.0) Mean Corpuscular Volume 88 fL (79-100) Mean Corpuscular Hemoglobin 31 pg (25-35) Mean Corpuscular Hemoglobin Concent 35 g/dL (31-37) Red Cell Distribution Width 12.5 % (11.5-14.5) Platelet Count 194 x10^3/uL (140-400) Neutrophils (%) (Auto) 62 % (31-73) Lymphocytes (%) (Auto) 26 % (24-48) Monocytes (%) (Auto) 9 % (0-9) Eosinophils (%) (Auto) 2 % (0-3) Basophils (%) (Auto) 1 % (0-3) Neutrophils # (Auto) 3.9 x10^3/uL (1.8-7.7) Lymphocytes # (Auto) 1.6 x10^3/uL (1.0-4.8) Monocytes # (Auto) 0.5 x10^3/uL (0.0-1.1) Eosinophils # (Auto) 0.1 x10^3/uL (0.0-0.7) Basophils # (Auto) 0.0 x10^3/uL (0.0-0.2) D-Dimer (Adrienne) 0.42 ug/mlFEU (0.00-0.50) Sodium Level 131 mmol/L (136-145) Potassium Level 4.1 mmol/L (3.5-5.1) Chloride Level 95 mmol/L (98-107) Carbon Dioxide Level 25 mmol/L (21-32) Anion Gap 11 (6-14) Blood Urea Nitrogen 17 mg/dL (8-26) Creatinine 1.3 mg/dL (0.7-1.3) Estimated GFR (Cockcroft-Gault) 58.7 BUN/Creatinine Ratio 13 (6-20) Glucose Level 508 mg/dL (70-99) Calcium Level 9.1 mg/dL (8.5-10.1) Magnesium Level 2.2 mg/dL (1.8-2.4) Total Bilirubin 0.8 mg/dL (0.2-1.0) Aspartate Amino Transf (AST/SGOT) 12 U/L (15-37) Alanine Aminotransferase (ALT/SGPT) 27 U/L (16-63) Alkaline Phosphatase 104 U/L (46-116) Creatine Kinase 50 U/L (39-308) Creatine Kinase MB (Mass) 0.9 ng/mL (0.0-3.6) Creatine Kinase MB Relative Index % (0-4) Troponin I Quantitative < 0.017 ng/mL (0.000-0.055) < 0.017 ng/mL (0.000-0.055) < 0.017 ng/mL (0.000-0.055) OB-Mqa-I-Type Natriuretic Peptide 14 pg/mL (0-124) Total Protein 6.9 g/dL (6.4-8.2) Albumin 3.9 g/dL (3.4-5.0) Albumin/Globulin Ratio 1.3 (1.0-1.7) Lipase 1594 U/L (73-393) Urine Collection Type Unknown Urine Color Yellow Urine Clarity Clear Urine pH 6.5 (<5.0-8.0) Urine Specific [place] >=1.030 (1.000-1.030) Urine Protein 30 mg/dL (NEG-TRACE) Urine Glucose (UA) >=1000 mg/dL (NEG) Urine Ketones (Stick) Negative mg/dL (NEG) Urine Blood Negative (NEG) Urine Nitrite Negative (NEG) Urine Bilirubin Negative (NEG) Urine Urobilinogen Dipstick 1.0 mg/dL (0.2 mg/dL) Urine Leukocyte Esterase Negative (NEG) Urine RBC 0 /HPF (0-2) Urine WBC 0 /HPF (0-4) Urine Bacteria 0 /HPF (0-FEW) Triglycerides Level 289 mg/dL (0-150) Cholesterol Level 192 mg/dL (0-200) LDL Cholesterol, Calculated 109 mg/dL (0-100) VLDL Cholesterol, Calculated 58 mg/dL (0-40) Non-HDL Cholesterol Calculated 167 mg/dL (0-129) HDL Cholesterol 25 mg/dL (40-60) Cholesterol/HDL Ratio 7.7 Images Images Chest radiograph: Single view of chest obtained. No focal airspace consolidation. Cardiomediastinal contour unremarkable. No acute osseous abnormality. IMPRESSION: * No focal airspace consolidation or edema. VTE Prophylaxis Ordered VTE Prophylaxis Devices: No VTE Pharmacological Prophylaxi: Yes Assessment/Plan Assessment/Plan A/P: Acute pancreatitis - likely related to uncontrolled diabetes. No alcohol use. Will obtain US if COVID 19 negative. Also, if COVID is positive this has been a related disease to COVID19 Chest pain - likely related to pancreatitis, will trend troponins, cardiology was consulted in ED Diabetes with hyperglycemia - IV insulin while NPO, sliding scale, home lantus. IVF Acute on Chronic renal failure - likely vasomotor nephropathy from above, will trend renal function Smoker - counseled on cessation. FEN - NPO PPX - lovenox FULL CODE Dispo - inpatient for above COVID-19 CRITERIA: The patient was evaluated during the global COVID-19 pandemic, and that diagnosis was suspected/considered upon their initial presentation. Their evaluation, treatment and testing was consistent with current guidelines for patients who present with complaints or symptoms that may be related to COVID-19. Justifications for Admission Other Justification RIFFEL,CHRISTOPHER S MD Mar 03, 2020 07:38
[2020-03-03] MEDS ORDERED: MORPHINE SULFATE 2 MG/ML VIAL. IV PRN (07:45)
[2020-03-03] MEDS ORDERED: DEXTROSE 50% 25 GM / 50ML DISP.SYRIN. IV PRN (07:45)
[2020-03-03] MEDS ORDERED: ACETAMINOPHEN 650 MG SUPP.RECT. PR PRN (07:45)
[2020-03-03] MEDS ORDERED: ONDANSETRON PF 4 MG/2 ML VIAL. IV PRN (07:45)
[2020-03-03] MEDS: INSULIN LISPRO 300 UNITS/3 ML VIAL. SQ SCH ×4 (07:45→23:47)
[2020-03-03] MEDS ORDERED: INSULIN REGULAR 100 UNIT/ML 3ML VIAL. IV ONE (08:45)
[2020-03-03] MEDS: IV NORMAL SALINE 1000ML BAG 1,000 ML IV SCH ×2 (09:08→18:36)
[2020-03-03] MEDS: ENOXAPARIN 40 MG/0.4 ML SYRINGE. SQ SCH (09:09)
--- NOTE | 2020-03-03 10:10 | EKG ---
[facility] [address] [place] [address] Test Date: 2020-03-02 Test Time: 21:50:45 Pat Name: PAVEL WEBSTER Department: Room: ED HOLD 15 Gender: M Director Quality Assurance: : 1970 Requested By: SOL WOODS Order Number: [id number] Reading MD: Jose Olsen Measurements Intervals [place] Rate: 111 P: 84 CA: 134 QRS: -22 QRSD: 86 T: 48 QT: 318 QTc: 436 Interpretive Statements SINUS TACHYCARDIA LEFTWARD AXIS LOW LIMB LEAD VOLTAGE Electronically Signed On 03-04-2020 13:44:06 CITY DISPATCHER by Jose Olsen
[2020-03-03 12:30] VITALS: BP 101/65
--- NOTE | 2020-03-03 14:22 | PDOC2 ---
PLACIDO TRAORE APRN 03/03/20 1422: CARDIAC CONSULT DATE OF CONSULT Date of Consult DATE: 03/03/20 TIME: 14:17 REASON FOR CONSULT Reason for Consult: Chest pain REFERRING PHYSICIAN Referring Physician: Tony Dennis APRN SOURCE Source: Chart review, Patient HISTORY OF PRESENT ILLNESS HISTORY OF PRESENT ILLNESS This is a 49 yo male who presented secondary to vomiting and chest pain. Patient reports that he began vomiting yesterday evening following dinner. Then subsequently developed chest pain. Reports and burning/pressure in his central chest. Non-radiating pain. No associated dizziness, diaphoresis, palpations, or SOA. No further pain this am. 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 Denies any exertional chest pain or shortness of breath. Feels slightly nauseated, but vomiting has subsided. PAST MEDICAL HISTORY Cardiovascular: HTN Endocrine: Diabetes PAST SURGICAL HISTORY Past Surgical History: Other (right knee surgery ) FAMILY HISTORY Family History: Diabetes, Hypertension SOCIAL HISTORY ALCOHOL: none Drugs: None CURRENT MEDICATIONS CURRENT MEDICATIONS Current Medications Medications (Trade) Dose Ordered Sig/Luis Fernando Route PRN Reason Start Time Stop Time Status Last Admin Dose Admin Insulin Human Regular (HumuLIN R VIAL) 5 unit 1X ONCE IV 03/02/20 23:00 03/02/20 23:01 DC 03/02/20 23:25 Sodium Chloride 1,000 ml @ 1,000 mls/hr 1X ONCE IV 03/02/20 23:00 03/02/20 23:59 DC 03/02/20 23:18 Sodium Chloride 1,000 ml @ 1,000 mls/hr 1X ONCE IV 03/02/20 23:00 03/02/20 23:59 DC 03/02/20 23:18 Insulin Human Lispro (HumaLOG) Q6HRS SQ 03/03/20 07:45 03/03/20 13:09 Sodium Chloride 1,000 ml @ 100 mls/hr Q10H IV 03/03/20 07:45 03/03/20 09:08 Enoxaparin Sodium (Lovenox 40mg Syringe) 40 mg Q24H SQ 03/03/20 08:00 03/03/20 09:09 Insulin Human Regular (HumuLIN R VIAL) 10 unit 1X ONCE IV 03/03/20 08:45 03/03/20 08:46 DC 03/03/20 09:07 ALLERGIES ALLERGIES: Coded Allergies: No Known Drug Allergies (Unverified , 10/22/17) ROS Review of System 14 point ROS conducted with pertinent positives noted above in HPI PHYSICAL EXAM General: Alert, Oriented X3, Cooperative, No acute distress HEENT: Atraumatic, Mucous membr. moist/pink Lungs: Clear to auscultation Heart: Regular rate Abdomen: Soft, No tenderness Extremities: No edema, Normal pulses Skin: No significant lesion Neuro: Normal speech, Sensation intact Psych/Mental Status: Mental status NL, Mood NL MUSCULOSKELETAL: No deformity VITALS/I&O VITALS/I&O: Vital Signs Date Time Temp Pulse Resp B/P (MAP) Pulse Ox O2 Delivery O2 Flow Rate FiO2 03/03/20 12:30 98.1 92 20 101/65 (77) 96 Room Air 98.1 I & O 03/02/20 03/02/20 03/03/20 15:00 23:00 07:00 Intake Total 2000 ml Balance 2000 ml LABS Lab: Laboratory Tests Test 03/02/20 21:40 03/02/20 22:03 03/03/20 01:02 03/03/20 06:10 White Blood Count 6.2 x10^3/uL (4.0-11.0) Red Blood Count 4.84 x10^6/uL (4.30-5.70) Hemoglobin 14.8 g/dL (13.0-17.5) Hematocrit 42.4 % (39.0-53.0) Mean Corpuscular Volume 88 fL (79-100) Mean Corpuscular Hemoglobin 31 pg (25-35) Mean Corpuscular Hemoglobin Concent 35 g/dL (31-37) Red Cell Distribution Width 12.5 % (11.5-14.5) Platelet Count 194 x10^3/uL (140-400) Neutrophils (%) (Auto) 62 % (31-73) Lymphocytes (%) (Auto) 26 % (24-48) Monocytes (%) (Auto) 9 % (0-9) Eosinophils (%) (Auto) 2 % (0-3) Basophils (%) (Auto) 1 % (0-3) Neutrophils # (Auto) 3.9 x10^3/uL (1.8-7.7) Lymphocytes # (Auto) 1.6 x10^3/uL (1.0-4.8) Monocytes # (Auto) 0.5 x10^3/uL (0.0-1.1) Eosinophils # (Auto) 0.1 x10^3/uL (0.0-0.7) Basophils # (Auto) 0.0 x10^3/uL (0.0-0.2) D-Dimer (Adrienne) 0.42 ug/mlFEU (0.00-0.50) Sodium Level 131 mmol/L (136-145) L Potassium Level 4.1 mmol/L (3.5-5.1) Chloride Level 95 mmol/L (98-107) L Carbon Dioxide Level 25 mmol/L (21-32) Anion Gap 11 (6-14) Blood Urea Nitrogen 17 mg/dL (8-26) Creatinine 1.3 mg/dL (0.7-1.3) Estimated GFR (Cockcroft-Gault) 58.7 BUN/Creatinine Ratio 13 (6-20) Glucose Level 508 mg/dL (70-99) *H Calcium Level 9.1 mg/dL (8.5-10.1) Magnesium Level 2.2 mg/dL (1.8-2.4) Total Bilirubin 0.8 mg/dL (0.2-1.0) Aspartate Amino Transferase (AST) 12 U/L (15-37) L Alanine Aminotransferase (ALT) 27 U/L (16-63) Alkaline Phosphatase 104 U/L (46-116) Creatine Kinase 50 U/L (39-308) Creatine Kinase MB (Mass) 0.9 ng/mL (0.0-3.6) Creatine Kinase MB Relative Index % (0-4) Troponin I Quantitative < 0.017 ng/mL (0.000-0.055) < 0.017 ng/mL (0.000-0.055) < 0.017 ng/mL (0.000-0.055) FH-Irf-C-Type Natriuretic Peptide 14 pg/mL (0-124) Total Protein 6.9 g/dL (6.4-8.2) Albumin 3.9 g/dL (3.4-5.0) Albumin/Globulin Ratio 1.3 (1.0-1.7) Lipase 1594 U/L (73-393) H Urine Collection Type Unknown Urine Color Yellow Urine Clarity Clear Urine pH 6.5 (<5.0-8.0) Urine Specific [place] >=1.030 (1.000-1.030) Urine Protein 30 mg/dL (NEG-TRACE) Urine Glucose (UA) >=1000 mg/dL (NEG) Urine Ketones (Stick) Negative mg/dL (NEG) Urine Blood Negative (NEG) Urine Nitrite Negative (NEG) Urine Bilirubin Negative (NEG) Urine Urobilinogen Dipstick 1.0 mg/dL (0.2 mg/dL) Urine Leukocyte Esterase Negative (NEG) Urine RBC 0 /HPF (0-2) Urine WBC 0 /HPF (0-4) Urine Bacteria 0 /HPF (0-FEW) Triglycerides Level 289 mg/dL (0-150) H Cholesterol Level 192 mg/dL (0-200) LDL Cholesterol, Calculated 109 mg/dL (0-100) H VLDL Cholesterol, Calculated 58 mg/dL (0-40) H Non-HDL Cholesterol Calculated 167 mg/dL (0-129) H HDL Cholesterol 25 mg/dL (40-60) L Cholesterol/HDL Ratio 7.7 Test 03/03/20 08:01 03/03/20 10:19 03/03/20 12:00 03/03/20 13:02 Glucose (Fingerstick) 354 mg/dL (70-99) H 254 mg/dL (70-99) H 294 mg/dL (70-99) H Troponin I Quantitative < 0.017 ng/mL (0.000-0.055) Laboratory Tests 03/02/20 21:40 Laboratory Tests 03/02/20 21:40 ECHOCARDIOGRAM ECHOCARDIOGRAM <Conclusion> The left ventricular systolic function is normal. The Ejection Fraction is 55-60%. There is normal LV segmental wall motion. Trace mitral regurgitation. Trace tricuspid regurgitation with an estimated PAP of 21 mmHg. There is no evidence of significant pericardial effusion. DATE: 04/26/19 1553 STRESS TEST STRESS TEST Conclusion 1. Regadenoson cardioisotope stress test did not show any evidence of ischemia or infarct. 2. Normal left ventricular systolic function with ejection fraction calculated at 69%. 3. Low risk for cardiac events. DATE: 04/27/19 1010 ASSESSMENT/PLAN ASSESSMENT/PLAN /1. Chest pain, atypical; AMI ruled out. EKG without significant acute changes as compared to study 07/05/19. MPI earlier this year without evidence of ischemia. Pain precipitated by vomiting. On ASA. If pain recurrent, could consider further workup on an outpatient basis 2. Nausea/vomiting; resolved 3. Hypertension; controlled 4. Hyperlipidemia; LD 109 5. Diabetes, II; uncontrolled. as per IM 6. PUI; COVID pending SUREKHA CH MD 03/03/201911: CARDIAC CONSULT ASSESSMENT/PLAN ASSESSMENT/PLAN Patient seen and examined. Agree with CIRCULATION ANALYST's assessment and plan. CP with atypical features and most probably GI etiology. WA ruled out. Covid test pending. Recent echo showed normal LVF and MPI did not show any significant ischemia. No further cardiac workup is indicated at this time. Thank you for your consultation. PLACIDO TRAORE APRN Mar 03, 2020 14:22 SUREKHA CH MD Mar 03, 2020 19:12
[2020-03-03 15:40] VITALS: BP 94/68
[2020-03-03 19:50] VITALS: BP 97/68
[2020-03-03] MEDS ORDERED: ATORVASTATIN CALCIUM 10 MG TABLET. PO SCH (21:00)
[2020-03-03] MEDS ORDERED: INSULIN GLARGINE SYRINGE. SQ SCH (22:00)
[2020-03-03] MEDS ORDERED: INSULIN GLARGINE SYRINGE. SQ ONE (22:30)
[2020-03-03 23:52] VITALS: BP 104/69
[2020-03-04] MEDS: IV NORMAL SALINE 1000ML BAG 1,000 ML IV SCH ×2 (05:56→13:45)
[2020-03-04] MEDS: INSULIN LISPRO 300 UNITS/3 ML VIAL. SQ SCH ×2 (06:21→11:56)
[2020-03-04 07:00] VITALS: BP 119/69
[2020-03-04] MEDS ORDERED: PANTOPRAZOLE 40 MG TABLET.DR. PO SCH (07:30)
[2020-03-04] MEDS ORDERED: ASPIRIN ENTERIC COATED 81 MG TABLET.DR. PO SCH (08:00)
[2020-03-04] MEDS: ENOXAPARIN 40 MG/0.4 ML SYRINGE. SQ SCH (08:33)
[2020-03-04 10:03] LABS: ALBUMIN 2.7 g/dL (3.4-5.0); TOTAL PROTEIN 5.2 g/dL (6.4-8.2)
[2020-03-04 10:04] LABS: ALBUMIN/GLOBULIN RATIO 1.1 (1.0-1.7); CALCIUM 7.9 mg/dL (8.5-10.1); CREATININE 0.7 mg/dL (0.7-1.3); GFR 119.9; POTASSIUM 3.5 mmol/L (3.5-5.1); TOTAL BILIRUBIN 0.7 mg/dL (0.2-1.0)
[2020-03-04 11:00] VITALS: BP 117/72
--- NOTE | 2020-03-04 11:59 | PDOC ---
[facility] PROGRESS NOTE Date of Service DOS: DATE: 03/04/20 TIME: 11:58 Chief Complaint Chief Complaint A/P: Acute pancreatitis - likely related to uncontrolled diabetes. No alcohol use. Will obtain US if COVID 19 negative. Also, if COVID is positive this has been a related disease to COVID19 Chest pain - likely related to pancreatitis, will trend troponins, cardiology was consulted in ED Diabetes with hyperglycemia - IV insulin while NPO, sliding scale, home lantus. IVF Acute on Chronic renal failure - likely vasomotor nephropathy from above, will trend renal function Smoker - counseled on cessation. FEN - ADA diet PPX - lovenox FULL CODE Dispo - inpatient for above History of Present Illness History of Present Illness Mr Goerge is a 49 year old male with history of diabetes and chronic renal failure, smoker who presents to the emergency room with complaints of a sudden onset of chest pain that began 1 hour prior to presentatino. 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 At the onset of the discomfort he became diaphoretic and vomited once but denies any blood in his vomit. Patient reports that he has felt fatigued and had a headache recently but he denies any body aches, fever, or loss of taste/smell. Patient reports that he has had a recent cough that occasionally produces green or brown sputum. He states that he has noticed that he has felt short of breath this evening that his chest feels tight. He denies any abdominal pain, diarrhea, or known exposure to COVID-19. Patient reports he does smoke occasionally, he denies any illicit drug use or alcohol use. He states he has a strong family history of heart disease both of his parents had heart problems. He currently rates the discomfort 8 out of 10 on the pain scale, he denies any alleviating or exacerbating factors and describes the discomfort as a heaviness or pressure in his chest. On further review he notes his urine has been intermittently looking red recently, no pain on urination. EKG sinus tachycardia rate of [address] segment or T wave changes leftward axis. Chest radiograph with no acute abnormalities Labs with WBC 6.2, Hb 14.8, platelets 194, D-dimer and troponin negative, NA 131, K4.1, BUN 17, CR 1.3, glucose 508, lipase 1594 Admitted for further care. Labs normalized. Has an appetite, tolerating PO well. No SOB or CP. some abdominal discomfort, but 99% improved. Wants to go home. Vitals/I&O Vitals/I&O: Vital Signs Date Time Temp Pulse Resp B/P (MAP) Pulse Ox O2 Delivery O2 Flow Rate FiO2 03/04/20 08:00 Room Air 03/04/20 07:00 98.7 81 18 119/69 (86) 97 98.7 I & O 03/03/20 03/03/20 03/04/20 15:00 23:00 07:00 Intake Total 0 ml 0 ml 0 ml Balance 0 ml 0 ml 0 ml Physical Exam General: Alert, Oriented X3, Cooperative, moderate distress Heart: Regular rate Abdomen: Normal bowel sounds, Soft, No hepatosplenomegaly, No masses, Other (epigastric and LUQ tenderness) Extremities: No clubbing, No cyanosis, No edema, Normal pulses, No tenderness/swelling Skin: No rashes, No breakdown, No significant lesion Labs Labs: Laboratory Tests Test 03/03/20 12:00 03/03/20 13:02 03/03/20 16:36 03/03/20 17:38 Troponin I Quantitative < 0.017 ng/mL (0.000-0.055) Glucose (Fingerstick) 294 mg/dL (70-99) 186 mg/dL (70-99) 183 mg/dL (70-99) Test 03/03/20 21:04 03/03/20 23:45 03/04/20 05:59 03/04/20 09:04 Glucose (Fingerstick) 187 mg/dL (70-99) 185 mg/dL (70-99) 216 mg/dL (70-99) Sodium Level 140 mmol/L (136-145) Potassium Level 3.5 mmol/L (3.5-5.1) Chloride Level 107 mmol/L (98-107) Carbon Dioxide Level 23 mmol/L (21-32) Anion Gap 10 (6-14) Blood Urea Nitrogen 11 mg/dL (8-26) Creatinine 0.7 mg/dL (0.7-1.3) Estimated GFR (Cockcroft-Gault) 119.9 BUN/Creatinine Ratio 16 (6-20) Glucose Level 172 mg/dL (70-99) Calcium Level 7.9 mg/dL (8.5-10.1) Total Bilirubin 0.7 mg/dL (0.2-1.0) Aspartate Amino Transf (AST/SGOT) 10 U/L (15-37) Alanine Aminotransferase (ALT/SGPT) 21 U/L (16-63) Alkaline Phosphatase 59 U/L (46-116) Total Protein 5.2 g/dL (6.4-8.2) Albumin 2.7 g/dL (3.4-5.0) Albumin/Globulin Ratio 1.1 (1.0-1.7) Lipase 186 U/L (73-393) Test 03/04/20 11:36 Glucose (Fingerstick) 194 mg/dL (70-99) Assessment and Plan Assessmemt and Plan Problems Medical Problems: (1) Chest pain Status: Acute (2) Hyperglycemia Status: Acute (3) Person under investigation for COVID-19 Status: Acute Comment Review of Relevant I have reviewed the following items prasanna (where applicable) has been applied. Medications: Current Medications Medications (Trade) Dose Ordered Sig/Luis Fernando Route PRN Reason Start Time Stop Time Status Last Admin Dose Admin Aspirin (Ecotrin) 81 mg DAILYWBKFT PO 03/04/20 08:00 03/04/20 08:34 Atorvastatin Calcium (Lipitor) 10 mg QHS PO 03/03/20 21:00 03/03/20 20:58 Pantoprazole Sodium (Protonix) 40 mg DAILYAC PO 03/04/20 07:30 03/04/20 05:56 Insulin Glargine (Lantus Syringe) 6 unit 1X ONCE SQ 03/03/20 22:30 03/03/20 22:31 DC 03/03/20 22:39 Justifications for Admission Other Justification TUSHAR MERIDA MD Mar 04, 2020 11:59
--- NOTE | 2020-03-04 13:21 | PDOC3 ---
Discharge Summary Visit Information Date of Admission: Mar 03, 2020 Date of Discharge: Mar 04, 2020 Admitting Diagnosis: Chest pain Final Diagnosis Problems Medical Problems: (1) Chest pain Status: Acute (2) Hyperglycemia Status: Acute (3) Person under investigation for COVID-19 Status: Acute Brief Hospital Course Allergies Allergies Coded Allergies Type Severity Reaction Last Updated Verified No Known Drug Allergies 10/22/17 No Vital Signs Vital Signs Date Time Temp Pulse Resp B/P (MAP) Pulse Ox O2 Delivery O2 Flow Rate FiO2 03/04/20 11:00 97.5 96 18 117/72 (87) 96 Room Air 97.5 Lab Results Laboratory Tests Test 03/02/20 21:40 03/02/20 22:03 03/03/20 01:02 03/03/20 06:10 White Blood Count 6.2 x10^3/uL (4.0-11.0) Red Blood Count 4.84 x10^6/uL (4.30-5.70) Hemoglobin 14.8 g/dL (13.0-17.5) Hematocrit 42.4 % (39.0-53.0) Mean Corpuscular Volume 88 fL (79-100) Mean Corpuscular Hemoglobin 31 pg (25-35) Mean Corpuscular Hemoglobin Concent 35 g/dL (31-37) Red Cell Distribution Width 12.5 % (11.5-14.5) Platelet Count 194 x10^3/uL (140-400) Neutrophils (%) (Auto) 62 % (31-73) Lymphocytes (%) (Auto) 26 % (24-48) Monocytes (%) (Auto) 9 % (0-9) Eosinophils (%) (Auto) 2 % (0-3) Basophils (%) (Auto) 1 % (0-3) Neutrophils # (Auto) 3.9 x10^3/uL (1.8-7.7) Lymphocytes # (Auto) 1.6 x10^3/uL (1.0-4.8) Monocytes # (Auto) 0.5 x10^3/uL (0.0-1.1) Eosinophils # (Auto) 0.1 x10^3/uL (0.0-0.7) Basophils # (Auto) 0.0 x10^3/uL (0.0-0.2) D-Dimer (Adrienne) 0.42 ug/mlFEU (0.00-0.50) Sodium Level 131 mmol/L (136-145) Potassium Level 4.1 mmol/L (3.5-5.1) Chloride Level 95 mmol/L (98-107) Carbon Dioxide Level 25 mmol/L (21-32) Anion Gap 11 (6-14) Blood Urea Nitrogen 17 mg/dL (8-26) Creatinine 1.3 mg/dL (0.7-1.3) Estimated GFR (Cockcroft-Gault) 58.7 BUN/Creatinine Ratio 13 (6-20) Glucose Level 508 mg/dL (70-99) Calcium Level 9.1 mg/dL (8.5-10.1) Magnesium Level 2.2 mg/dL (1.8-2.4) Total Bilirubin 0.8 mg/dL (0.2-1.0) Aspartate Amino Transf (AST/SGOT) 12 U/L (15-37) Alanine Aminotransferase (ALT/SGPT) 27 U/L (16-63) Alkaline Phosphatase 104 U/L (46-116) Creatine Kinase 50 U/L (39-308) Creatine Kinase MB (Mass) 0.9 ng/mL (0.0-3.6) Creatine Kinase MB Relative Index % (0-4) Troponin I Quantitative < 0.017 ng/mL (0.000-0.055) < 0.017 ng/mL (0.000-0.055) < 0.017 ng/mL (0.000-0.055) FW-Jav-O-Type Natriuretic Peptide 14 pg/mL (0-124) Total Protein 6.9 g/dL (6.4-8.2) Albumin 3.9 g/dL (3.4-5.0) Albumin/Globulin Ratio 1.3 (1.0-1.7) Lipase 1594 U/L (73-393) Urine Collection Type Unknown Urine Color Yellow Urine Clarity Clear Urine pH 6.5 (<5.0-8.0) Urine Specific [place] >=1.030 (1.000-1.030) Urine Protein 30 mg/dL (NEG-TRACE) Urine Glucose (UA) >=1000 mg/dL (NEG) Urine Ketones (Stick) Negative mg/dL (NEG) Urine Blood Negative (NEG) Urine Nitrite Negative (NEG) Urine Bilirubin Negative (NEG) Urine Urobilinogen Dipstick 1.0 mg/dL (0.2 mg/dL) Urine Leukocyte Esterase Negative (NEG) Urine RBC 0 /HPF (0-2) Urine WBC 0 /HPF (0-4) Urine Bacteria 0 /HPF (0-FEW) Triglycerides Level 289 mg/dL (0-150) Cholesterol Level 192 mg/dL (0-200) LDL Cholesterol, Calculated 109 mg/dL (0-100) VLDL Cholesterol, Calculated 58 mg/dL (0-40) Non-HDL Cholesterol Calculated 167 mg/dL (0-129) HDL Cholesterol 25 mg/dL (40-60) Cholesterol/HDL Ratio 7.7 Test 03/03/20 08:01 03/03/20 10:19 03/03/20 12:00 03/03/20 13:02 Glucose (Fingerstick) 354 mg/dL (70-99) 254 mg/dL (70-99) 294 mg/dL (70-99) Troponin I Quantitative < 0.017 ng/mL (0.000-0.055) Test 03/03/20 16:36 03/03/20 17:38 03/03/20 21:04 03/03/20 23:45 Glucose (Fingerstick) 186 mg/dL (70-99) 183 mg/dL (70-99) 187 mg/dL (70-99) 185 mg/dL (70-99) Test 03/04/20 05:59 03/04/20 09:04 03/04/20 11:36 Glucose (Fingerstick) 216 mg/dL (70-99) 194 mg/dL (70-99) Sodium Level 140 mmol/L (136-145) Potassium Level 3.5 mmol/L (3.5-5.1) Chloride Level 107 mmol/L (98-107) Carbon Dioxide Level 23 mmol/L (21-32) Anion Gap 10 (6-14) Blood Urea Nitrogen 11 mg/dL (8-26) Creatinine 0.7 mg/dL (0.7-1.3) Estimated GFR (Cockcroft-Gault) 119.9 BUN/Creatinine Ratio 16 (6-20) Glucose Level 172 mg/dL (70-99) Calcium Level 7.9 mg/dL (8.5-10.1) Total Bilirubin 0.7 mg/dL (0.2-1.0) Aspartate Amino Transf (AST/SGOT) 10 U/L (15-37) Alanine Aminotransferase (ALT/SGPT) 21 U/L (16-63) Alkaline Phosphatase 59 U/L (46-116) Total Protein 5.2 g/dL (6.4-8.2) Albumin 2.7 g/dL (3.4-5.0) Albumin/Globulin Ratio 1.1 (1.0-1.7) Lipase 186 U/L (73-393) Laboratory Tests Test 03/03/20 16:36 03/03/20 17:38 03/03/20 21:04 03/03/20 23:45 Glucose (Fingerstick) 186 mg/dL (70-99) 183 mg/dL (70-99) 187 mg/dL (70-99) 185 mg/dL (70-99) Test 03/04/20 05:59 03/04/20 09:04 03/04/20 11:36 Glucose (Fingerstick) 216 mg/dL (70-99) 194 mg/dL (70-99) Sodium Level 140 mmol/L (136-145) Potassium Level 3.5 mmol/L (3.5-5.1) Chloride Level 107 mmol/L (98-107) Carbon Dioxide Level 23 mmol/L (21-32) Anion Gap 10 (6-14) Blood Urea Nitrogen 11 mg/dL (8-26) Creatinine 0.7 mg/dL (0.7-1.3) Estimated GFR (Cockcroft-Gault) 119.9 BUN/Creatinine Ratio 16 (6-20) Glucose Level 172 mg/dL (70-99) Calcium Level 7.9 mg/dL (8.5-10.1) Total Bilirubin 0.7 mg/dL (0.2-1.0) Aspartate Amino Transf (AST/SGOT) 10 U/L (15-37) Alanine Aminotransferase (ALT/SGPT) 21 U/L (16-63) Alkaline Phosphatase 59 U/L (46-116) Total Protein 5.2 g/dL (6.4-8.2) Albumin 2.7 g/dL (3.4-5.0) Albumin/Globulin Ratio 1.1 (1.0-1.7) Lipase 186 U/L (73-393) Brief Hospital Course Mr George is a 49 year old male with history of diabetes and chronic renal failure, smoker who presents to the emergency room with complaints of a sudden onset of chest pain that began 1 hour prior to presentatino. 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 At the onset of the discomfort he became diaphoretic and vomited once but denies any b lood in his vomit. Patient reports that he has felt fatigued and had a headache recently but he denies any body aches, fever, or loss of taste/smell. Patient reports that he has had a recent cough that occasionally produces green or brown sputum. He states that he has noticed that he has felt short of breath this evening that his chest feels tight. He denies any abdominal pain, diarrhea, or known exposure to COVID-19. Patient reports he does smoke occasionally, he denies any illicit drug use or alcohol use. He states he has a strong family history of heart disease both of his parents had heart problems. He currently rates the discomfort 8 out of 10 on the pain scale, he denies any alleviating or exacerbating factors and describes the discomfort as a heaviness or pressure in his chest. On further review he notes his urine has been intermittently looking red recently, no pain on urination. EKG sinus tachycardia rate of [address] segment or T wave changes leftward axis. Chest radiograph with no acute abnormalities Labs with WBC 6.2, Hb 14.8, platelets 194, D-dimer and troponin negative, NA 131, K4.1, BUN 17, CR 1.3, glucose 508, lipase 1594 Admitted for further care. Consults: Cardiology Labs normalized. Has an appetite, tolerating PO well. No SOB or CP. some abdominal discomfort, but 99% improved. Wants to go home. Problem list: Acute pancreatitis - likely related to uncontrolled diabetes. No alcohol use. Will obtain US if COVID 19 negative. Also, if COVID is positive this has been a related disease to COVID19 Chest pain - likely related to pancreatitis, resolved Diabetes with hyperglycemia - IV insulin while NPO, sliding scale, home lantus. IVF Acute on Chronic renal failure - likely vasomotor nephropathy from above, will trend renal function Smoker - counseled on cessation. Greater than 30 minutes spent on d/c home Discharge Information Condition at Discharge: Improved Follow Up: Weeks (1) Disposition/Orders: D/C to Home Scheduled Aspirin (Aspirin Ec) 81 Mg Tablet., 81 MG PO DAILYWBKFT for HEART for 30 Days, #30 Prescribed by: TRINA RICE MD on 04/28/191219 Last Action: Reviewed on 03/03/201408 by SAV CARREON Atorvastatin Calcium (Atorvastatin Calcium) 20 Mg Tablet, 20 MG PO QHS for CHOLESTEROL for 30 Days, #30 Prescribed by: TRINA RICE MD on 04/28/191219 Last Action: Reviewed on 03/03/201408 by SAV CARREON Insulin Glargine,Hum.rec.anlog (Lantus) 100 Unit/1 Ml Vial, 20 UNIT SQ QHS for DIABETES for 30 Days, #1 Prescribed by: TRINA RICE MD on 04/28/191219 Last Action: Continued on 03/03/202132 by TUSHAR MERIDA MD Pantoprazole Sodium (Pantoprazole Sodium ) 40 Mg Tablet., 40 MG PO DAILYAC for GERD for 30 Days, #30 Prescribed by: TRINA RICE MD on 04/28/191219 Last Action: Continued on 03/03/202132 by TUSHAR MERIDA MD Justicifation of Admission Dx: Justifications for Admission: Justification of Admission Dx: Yes TUSHAR MERIDA MD Mar 04, 2020 13:21
--- NOTE | 2020-03-04 14:02 | NUR ---
Discharge Note: [facility] Discharge instructions and discharge home medications reviewed with Patient and a copy given. All questions have been answered and understanding verbalized. The following instructions and handouts were given: f/u with pcp within one week. Discontinued lines and drains: Peripheral IV intact. Patient discharged to Home or Self Care with Family Member via Ambulated all belongings with patient at the time of discharge.
--- NOTE | 2020-03-04 17:22 | NUR ---
SW following for discharge planning. Spoke with RN and reviewed chart. Pt to discharge home today 03/04, self-care. No further SW needs on discharge.
--- NOTE | 2020-03-05 14:58 | NUR ---
IP: Informed pt of negative COVID results. Pt verbalized understanding.
== END 2020-03-04 14:00 | disposition home or self-care (01) | DRG 438 ==
LOC: ER 21:36 → ED HOLD 03-03 01:45 → 6 SOUTH 03-03 11:05
PROVIDERS: ADMIT Internal Medicine; ATTEND Internal Medicine
DX: K85.90 Acute pancreatitis without necrosis or infection, unspecified (principal); N17.0 Acute kidney failure with tubular necrosis; R07.9 Chest pain, unspecified; F17.210 Nicotine dependence, cigarettes, uncomplicated; N18.9 Chronic kidney disease, unspecified; E11.22 Type 2 diabetes mellitus with diabetic chronic kidney disease; M19.90 Unspecified osteoarthritis, unspecified site; I12.9 Hypertensive chronic kidney disease with stage 1 through stage 4 chronic kidney disease, or unspecified chronic kidney disease; E78.5 Hyperlipidemia, unspecified; E11.65 Type 2 diabetes mellitus with hyperglycemia; K21.9 Gastro-esophageal reflux disease without esophagitis; Z71.6 Tobacco abuse counseling; Z83.3 Family history of diabetes mellitus; Z82.49 Family history of ischemic heart disease and other diseases of the circulatory system; Z20.822 Contact with and (suspected) exposure to COVID-19
CPT/HCPCS: 36415; 71045; 80053; 80061; 81001; 82553; 82962; 83690; 83735; 83880; 84484; 85025; 85379; 93005; 96361; 96374; 99285; J1650; J1815; J7030; U0003; G0378

== ENCOUNTER 2020-07-23 12:56 | Emergency (ER) | payer OTHER, MEDICAID ==
[~2020-07-23] VITALS: Ht 182.9 cm; Wt 70.0 kg
--- NOTE | 2020-07-23 13:12 | ED.ADGEN ---
Past Medical History Past Medical History: Diabetes-Type II, Renal Failure Past Surgical History: Other Additional Past Surgical Histo: knee surgery Smoking Status: Current Every Day Smoker Alcohol Use: None Drug Use: None General Adult EDM: Chief Complaint: HEAD, FACE, NECK, TRAUMA HPI: HPI: Patient is a 49-year-old male who arrives ambulatory to the emergency department complaining of head neck pain. Patient reportedly was struck in the head with a wire spool (weighing 55 pounds) while working. Patient was wearing a helmet as part of a safety precaution for his occupation when this pool fell and struck him on the top of the head. Patient reports he was knocked out when this occurred for short time. Patient reports upon waking he has had double vision as well as nausea. The patient reports he did take Tylenol with minimal relief. Patient initially refused to seek spine immobilization however after my assessm ent the patient agreed to this as he does have midline neck pain. He denies vomiting. He further denies any medical issues previous to this injury. Furthermore he denies any focal neurological deficit otherwise. He is awake, alert and nontoxic-appearing Review of Systems: Review of Systems: Constitutional: Denies fever or chills. [] Eyes: Denies change in visual acuity. [] HENT: Denies nasal congestion or sore throat. [] Respiratory: Denies cough or shortness of breath. [] Cardiovascular: Denies chest pain or edema. [] GI: Reports nausea. Denies vomiting, bloody stools or diarrhea. [] : Denies dysuria. [] Musculoskeletal: Reports neck pain. Denies back pain or joint pain. [] Integument: Denies rash. [] Neurologic: Reports headache, change in mental status. Denies focal weakness or sensory changes. [] Endocrine: Denies polyuria or polydipsia. [] Lymphatic: Denies swollen glands. [] Psychiatric: Denies depression or anxiety. [] Family History: Family History: Noncontributory Current Medications: Current Medications Medications (Trade) Dose Ordered Sig/Luis Fernando Start Time Stop Time Status Last Admin Dose Admin Ondansetron HCl (Zofran Odt) 4 mg 1X ONCE 07/23/20 13:15 07/23/20 13:16 DC 07/23/20 13:25 4 MG Allergies: Allergies: Allergies Coded Allergies Type Severity Reaction Last Updated Verified No Known Drug Allergies 8/25/18 No Physical Exam: PE: Constitutional: Well developed, well nourished, no acute distress, non-toxic appearance. [] HENT: Normocephalic, atraumatic, bilateral external ears normal, oropharynx moist, no oral exudates, nose normal. [] Eyes: PERRLA, EOMI, conjunctiva normal, no discharge. [] Neck: Normal range of motion, no tenderness, supple, no stridor. [] Cardiovascular:Heart rate regular rhythm, no murmur [] Lungs & Thorax: Bilateral breath sounds clear to auscultation [] Abdomen: Bowel sounds normal, soft, no tenderness, no masses, no pulsatile masses. [] Skin: Warm, dry, no erythema, no rash. [] Back: No tenderness, no CVA tenderness. [] Extremities: No tenderness, no cyanosis, no clubbing, ROM intact, no edema. [] Neurologic: Alert and oriented X 3, normal motor function, normal sensory function, no focal deficits noted. [] Psychologic: Affect normal, judgement normal, mood normal. [] Current Patient Data: Vital Signs: Vital Signs Date Time Temp Pulse Resp B/P (MAP) Pulse Ox O2 Delivery O2 Flow Rate FiO2 07/23/20 13:02 98.7 89 16 125/78 (94) 98 Room Air 98.7 EKG: EKG: [] EKG was obtained at 1306 hrs. and revealed a normal sinus rhythm with a ventricular rate of 92 bpm. There is left axis deviation present. Intervals are otherwise normal without acute ST/T wave changes to denote ischemia. Heart Score: C/O Chest Pain: No Risk Factors: Risk Factors: DM, Current or recent (<one month) smoker, HTN, HLP, family history of CAD, obesity. Risk Scores: Score 0 - 3: 2.5% MACE over next 6 weeks - Discharge Home Score 4 - 6: 20.3% MACE over next 6 weeks - Admit for Clinical Observation Score 7 - 10: 72.7% MACE over next 6 weeks - Early Invasive Strategies Radiology/Procedures: Radiology/Procedures: [] Impression: [facility] [address] [place] [address] IMAGING REPORT Signed PATIENT: PAVEL WEBSTER ACCOUNT: [id number] : 1970 LOCATION: ER AGE: 49 SEX: M EXAM STATUS: PRE ER ORD. PHYSICIAN: COREY ALVES DO REASON: trauma PROCEDURE: CT HEAD AND CERVICAL SPINE WO CT HEAD AND C-SPINE WO Date: 07/23/2020 1:10 PM Clinical Indication: Pain, trauma / Spl. Instructions: / History: Comparison: None. Technique: 5 mm axial tomographic images were obtained of the head without contrast. These were viewed on brain and bone windows. CT imaging of the cervical spine was performed without contrast. Coronal and sagittal reformatted images were performed. One or more of the following dose reduction techniques were utilized: Automated exposure control (AEC), Adjustment of mA and/or kV according to patient size, Use of iterative reconstruction technique such as ASiR, CT scan done according to ALARA and image gently/image wisely HEAD FINDINGS: The brain parenchyma is normal in attenuation. No intra- or extra-axial mass or fluid collection. No acute hemorrhage. The ventricles are normal in size, shape, and morphology. The coburn-white matter junction is normal. The basilar cisterns are patent. Maxillary sinus secretions. The visualized portions of the orbits and globes are normal. The mastoid air cells are clear. No aggressive osseous lesion or fracture. CERVICAL SPINE FINDINGS: The cervical spine is normally aligned. No acute fracture. No aggressive lytic or blastic osseous lesion. Bilateral stylohyoid ligament ossification. The intervertebral disc heights are maintained. No high-grade spinal canal stenosis or neural foraminal narrowing. The thyroid gland is normal. No cervical lymphadenopathy. The visualized aerodigestive tract is unremarkable. The visualized lung apices are clear. IMPRESSION: 1. No acute intracranial process. 2. No acute osseous abnormality of the cervical spine. Electronically signed by: Bharat Arnold MD (07/23/2020 1:53 PM) [id number] DICTATED and SIGNED BY: BHARAT ARNOLD MD DATE: 07/23/20 [id number] Course & Med Decision Making: Course & Med Decision Making Pertinent Labs and Imaging studies reviewed. (See chart for details) The patient remains awake, alert and in no acute distress. Patient's imaging is negative in the emergency department. Nonetheless I do believe the patient likely sustained a concussion and I have advised that he follow-up with his Workmen's Compensation health care provider for ongoing evaluation of this. Should the patient have any change in his condition from a neurological standpoint, I have advised him to return to the emergency department. The patient understands and has agreed to do so. He is nontoxic-appearing and neurologically intact. He is stable for discharge. Dragon Disclaimer: Dragon Disclaimer: This electronic medical record was generated, in whole or in part, using a voice recognition dictation system. Departure Departure Impression: Primary Impression: Closed head injury with brief loss of consciousness Additional Impression: Cervical strain, acute Disposition: HOME / SELF CARE / HOMELESS Condition: STABLE Referrals: UNKNOWN PCP NAME (PCP) Patient Instructions: Cervical Strain and Sprain with Rehab-SportsMed, Head Injury, Adult Scripts Cyclobenzaprine Hcl (CYCLOBENZAPRINE HCL) 10 Mg Tablet 1 TAB PO TID for 5 Days, #15 TAB Prov: COREY ALVES DO 07/23/20 Acetaminophen With Codeine (ACETAMINOPHEN-COD #3 TABLET) 1 Each Tablet 1 TAB PO PRN Q6HRS PRN for PAIN for 3 Days, #12 TAB Prov: COREY ALVES DO 07/23/20 Problem Qualifiers COREY ALVES DO July 23, 2020 13:12
[2020-07-23] MEDS ORDERED: ONDANSETRON ODT 4 MG TAB.RAPDIS. PO ONE (13:15)
--- NOTE | 2020-07-23 13:55 | RAD ---
CT HEAD AND C-SPINE WO Date: 07/23/2020 1:10 PM Clinical Indication: Pain, trauma / Spl. Instructions: / History: Comparison: None. Technique: 5 mm axial tomographic images were obtained of the head without contrast. These were view ed on brain and bone windows. CT imaging of the cervical spine was performed without contrast. Coron al and sagittal reformatted images were performed. One or more of the following dose reduction techni ques were utilized: Automated exposure control (AEC), Adjustment of mA and/or kV according to patient size, Use of iterative reconstruction technique such as ASiR, CT scan done according to ALARA and im age gently/image wisely HEAD FINDINGS: The brain parenchyma is normal in attenuation. No intra- or extra-axial mass or fluid collection. No acute hemorrhage. The ventricles are normal in size, shape, and morphology. The coburn-white matter stephanie ction is normal. The basilar cisterns are patent. Maxillary sinus secretions. The visualized portions of the orbits and globes are normal. The mastoid air cells are clear. No aggressive osseous lesion or fracture. CERVICAL SPINE FINDINGS: The cervical spine is normally aligned. No acute fracture. No aggressive lytic or blastic osseous les ion. Bilateral stylohyoid ligament ossification. The intervertebral disc heights are maintained. No high-grade spinal canal stenosis or neural foramin al narrowing. The thyroid gland is normal. No cervical lymphadenopathy. The visualized aerodigestive tract is unrem arkable. The visualized lung apices are clear. IMPRESSION: 1. No acute intracranial process. 2. No acute osseous abnormality of the cervical spine. Electronically signed by: Christopher Arnold MD (07/23/2020 1:53 PM) [id number]
[2020-07-23] MEDS ORDERED: ACET1TAB33 PO (14:02)
[2020-07-23] MEDS ORDERED: CYCL10TA2 PO (14:02)
[2020-07-23 14:36] VITALS: BP 119/77
--- NOTE | 2020-07-24 05:30 | EKG ---
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
== END 2020-07-23 14:42 | disposition home or self-care (01) ==
LOC: ER 12:56
DX: S16.1XXA Strain of muscle, fascia and tendon at neck level, initial encounter (principal); S06.9X9A Unspecified intracranial injury with loss of consciousness of unspecified duration, initial encounter; E11.22 Type 2 diabetes mellitus with diabetic chronic kidney disease; N18.9 Chronic kidney disease, unspecified; F17.200 Nicotine dependence, unspecified, uncomplicated; W22.8XXA Striking against or struck by other objects, initial encounter; Y93.89 Activity, other specified; Y92.89 Other specified places as the place of occurrence of the external cause; Y99.8 Other external cause status
CPT/HCPCS: 70450; 72125; 93005; 99285-25